=== PATIENT | male | born 1965 | race Caucasian/White ===

== ENCOUNTER 2016-08-14 13:35 | Emergency (ER) | payer SELFPAY ==
[~2016-08-14] VITALS: Ht 172.7 cm; Wt 86.6 kg
[2016-08-14 13:47] VITALS: TEMP 36.8; Ht 172.7 cm; Wt 86.6 kg
[2016-08-14] MEDS ORDERED: ASPI-428 PO (14:05)
[2016-08-14] MEDS ORDERED: ASPI-390 PO (14:05)
[2016-08-14 14:30] LABS: BASO % 0.2 %; BASO ABS # 0.03 K/uL (0-0.2); COMPLETE YES; EOS % 1.3 %; HEMATOCRIT 45.2 % (42-52); IG% 0.3 %; LYMPH % 14.7 %; LYMPH ABS # 1.79 K/uL (1.2-3.4); MEAN CELL VOLUME 78.6 fL (80-100); MEAN CORPUSCULAR HEMOGLOBIN 27.8 pg (25-34); MEAN CORPUSCULAR HGB CONC 35.4 g/dl (32-36); MEAN PLATELET VOLUME 8.9 fL (7.4-10.4); MONO % 5.7 %; NEUT % 77.8 %; PLATELET COUNT 260 K/uL (130-400); RED BLOOD COUNT 5.75 M/uL (4.7-6.1); WHITE BLOOD COUNT 12.15 K/uL (4.8-10.8)
[2016-08-14] MEDS ORDERED: OPTIRAY 320 IV PRN (14:30)
[2016-08-14 14:49] LABS: BLOOD UREA NITROGEN 18 mg/dl (7-18); BUN/CREATININE RATIO 14.8 (10-20); C-REACTIVE PROTEIN < 0.29 mg/dl (0-0.29); CALCIUM 9.6 mg/dl (8.5-10.1); CARBON DIOXIDE 26 mmol/L (21-32); CHLORIDE 102 mmol/L (98-107); GLUCOSE 92 mg/dl (70-99); POTASSIUM 3.6 mmol/L (3.5-5.1); SODIUM 138 mmol/L (136-145)
--- NOTE | 2016-08-14 15:13 | DIAGNOSTIC IMAGING REPORT ---
CT SCAN OF THE ABDOMEN AND PELVIS WITH IV CONTRAST CLINICAL HISTORY: Rectal pain. COMPARISON STUDY: No priors. TECHNIQUE: Following the IV administration of 93 cc of Optiray 320, CT scan of the abdomen and pelvis is performed from the lung bases to the proximal femora. Images are reviewed in the axial, sagittal, and coronal planes. IV contrast was administered without complication. Automated dose control exposure was utilized. CT DOSE: 405.06 mGy.cm FINDINGS: Lung bases: The heart is normal in size and without pericardial effusion. The lung bases are clear noting minimal dependent atelectasis. There is a small hiatal hernia. Liver: The contrast-enhanced liver is normal in size, contour, and attenuation. There is no intrahepatic biliary ductal dilatation. The hepatic veins and portal veins are patent. Scattered hepatic cysts measure up to 1.8 cm. Additional subcentimeter hepatic hypodensities also likely represent cysts but are too small for definitive characterization. Gallbladder: Unremarkable. Spleen: Normal in size and attenuation. Pancreas: Unremarkable. Adrenal glands: Unremarkable. Kidneys: The contrast enhanced kidneys are normal in size and without hydronephrosis. The kidneys enhance symmetrically. Abdominal vasculature: The abdominal aorta is normal in course and caliber. Bowel: The small bowel and colon are normal in course and caliber. The appendix is well-visualized and normal. No rectal wall thickening is identified. The perirectal soft tissues are within normal limits. Peritoneum: There is no intraperitoneal free air or abdominal ascites. There is a small fat-containing umbilical hernia. Lymphadenopathy: None. Pelvic viscera: The bladder, prostate, and seminal vesicles are normal as visualized. There are small bilateral fat-containing inguinal hernias. The perianal soft tissues are normal as visualized. Skeletal structures: No lytic or blastic lesions are seen. There are bilateral pars defects at L5. There is minimal anterolisthesis at L5-S1. IMPRESSION: 1. There are no acute infectious or inflammatory findings in the abdomen or pelvis. 2. The perianal and perirectal soft tissues are normal as visualized as clinically queried. If further assessment of the rectum is desired then endoscopy would be appropriate. Electronically signed by: Jordi Bello M.D. 08/14/2016 3:12 PM Dictated Date/Time: 08/14/2016 3:07 PM
[2016-08-14] MEDS ORDERED: LIDO/EPINEPHRINE/SOD BICARB 20 ML VIAL INFIL ONE (15:29)
[2016-08-14] MEDS ORDERED: XYLOCAINE 1%/SOD BICARB 20 ML VIAL INFIL ONE (15:30)
[2016-08-14 15:53] VITALS: BP 133/83; PULSE 91; O2SAT 97
--- NOTE | 2016-08-14 16:55 | EMERGENCY ROOM VISIT NOTE ---
History First contact with patient: 13:54 Chief Complaint: RECTAL PAIN Stated Complaint: RECTAL PAIN-SENT FROM [facility] Triage Summary: having rectal pain x's a couple days. went to [facility] was sent to r/o hemorrhoids History of Present Illness The patient is a 51 year old male who presents to the Emergency Room with complaints of rectal pain with a lump and liquid stool drainage. The patient reports that he had a lump on the left side of his anus 12 weeks ago. It lasted approximately 5 weeks then went away on its own. The patient reports that he redeveloped a painful lump yesterday that he describes as a throbbing pain. He is also had brown liquid drainage from the rectum as well. He has also noticed bright red blood with wiping. [facility] this afternoon, and referred to the emergency department for further evaluation. The patient denies any abdominal pain, nausea or vomiting. He has had fevers and chills. The patient has never had a colonoscopy in the past. He currently does not have any insurance or family physician. The patient does report frequent constipation. He has noticed a recent increase in frequency of bowel movements. Review of Systems HEENT: Denies dizziness, visual problems, hearing loss, tinnitus. Denies difficulty swallowing or oral lesions. PULMONARY: Denies cough, shortness of breath, sputum production or hemoptysis. CARDIOVASCULAR: Denies chest pain, palpitations, dyspnea on exertion, orthopnea or peripheral edema. GASTROINTESTINAL: See history of present illness. GENITOURINARY: Denies dysuria, frequency, urgency or nocturia. NEUROLOGIC: Denies history of epilepsy, CVA, TIA or chronic headaches. MUSCULOSKELETAL: Denies history of joint tenderness/swelling. SKIN: Denies rashes or lesions. PSYCHIATRIC: Denies history of depression or mental illness. ENDOCRINE: Denies history of diabetes or thyroid disorders. Past Medical/Surgical History Medical Problems: (1) No significant past medical history Surgical Problems: (1) No history of previous surgery Family History FH: cancer FH: diabetes mellitus FH: heart disease FH: hypertension FH: kidney disease FH: lung disease Social History Smoking Status: Never Smoker Alcohol Use: occasionally Marital Status: single Housing Status: lives alone Occupation Status: employed Current/Historical Medications Scheduled Aspirin (Ecotrin Low Strength), 81 MG PO DAILY Scheduled PRN Owalwya-Yzoqntjmgouzw-Clljbxfl (Excedrin Migraine), 1 TAB PO PRN PRN for Migraine Allergies Coded Allergies: Penicillins (Unverified Allergy, Intermediate, vomiting, 06/13/10) Uncoded Allergies: BEES (Allergy, Severe, hives, swelling, 06/13/10) Physical Exam Vital Signs Date Time Temp Pulse Resp B/P Pulse Ox O2 Delivery O2 Flow Rate FiO2 08/14/16 15:53 91 18 133/83 97 08/14/16 15:29 90 18 145/95 97 08/14/16 13:47 36.8 95 18 145/97 96 Room Air Physical Exam CONSTITUTIONAL: Healthy and well nourished. Alert and oriented X 3 with positive affect. She does not appear in any acute distress. HEENT: Normocephalic, atraumatic. Pupils equal, round and reactive. No scleral icterus or conjunctival injection/pallor. NECK: Full active range of motion without discomfort. RESPIRATORY: Clear to auscultation bilaterally with no wheezing, crackles, rhonchi or stridor. CARDIOVASCULAR: Regular rate and rhythm with no murmurs, rubs or gallops. GASTROINTESTINAL: Bowel sounds present in all quadrants. Abdomen is soft and nontender to palpation. Because the patient had 2 digital rectal exam is performed at the [facility] urgent care center, digital rectal exam was deferred. Examination does show a marble-sized external hemorrhoid at 3:00. It is firm to palpation. There is no obvious perirectal erythema or induration. MUSCULOSKELETAL: Full range of motion of all joints without discomfort. INTEGUMENTARY: No rash or other significant dermatologic conditions noted. NEUROLOGIC: No focal neurologic deficits noted. Medical Decision & Procedures ER Provider Diagnostic Interpretation: CT of the abdomen and pelvis with IV contrast does not show any acute perirectal or other intrapelvic findings. Radiologist report is as follows: CT SCAN OF THE ABDOMEN AND PELVIS WITH IV CONTRAST CLINICAL HISTORY: Rectal pain. COMPARISON STUDY: No priors. TECHNIQUE: Following the IV administration of 93 cc of Optiray 320, CT scan of the abdomen and pelvis is performed from the lung bases to the proximal femora. Images are reviewed in the axial, sagittal, and coronal planes. IV contrast was administered without complication. Automated dose control exposure was utilized. CT DOSE: 405.06 mGy.cm FINDINGS: Lung bases: The heart is normal in size and without pericardial effusion. The lung bases are clear noting minimal dependent atelectasis. There is a small hiatal hernia. Liver: The contrast-enhanced liver is normal in size, contour, and attenuation. There is no intrahepatic biliary ductal dilatation. The hepatic veins and portal veins are patent. Scattered hepatic cysts measure up to 1.8 cm. Additional subcentimeter hepatic hypodensities also likely represent cysts but are too small for definitive characterization. Gallbladder: Unremarkable. Spleen: Normal in size and attenuation. Pancreas: Unremarkable. Adrenal glands: Unremarkable. Kidneys: The contrast enhanced kidneys are normal in size and without hydronephrosis. The kidneys enhance symmetrically. Abdominal vasculature: The abdominal aorta is normal in course and caliber. Bowel: The small bowel and colon are normal in course and caliber. The appendix is well-visualized and normal. No rectal wall thickening is identified. The perirectal soft tissues are within normal limits. Peritoneum: There is no intraperitoneal free air or abdominal ascites. There is a small fat-containing umbilical hernia. Lymphadenopathy: None. Pelvic viscera: The bladder, prostate, and seminal vesicles are normal as visualized. There are small bilateral fat-containing inguinal hernias. The perianal soft tissues are normal as visualized. Skeletal structures: No lytic or blastic lesions are seen. There are bilateral pars defects at L5. There is minimal anterolisthesis at L5-S1. IMPRESSION: 1. There are no acute infectious or inflammatory findings in the abdomen or pelvis. 2. The perianal and perirectal soft tissues are normal as visualized as clinically queried. If further assessment of the rectum is desired then endoscopy would be appropriate. Laboratory Results 08/14/16 14:20 Red Blood Count 5.75, Mean Corpuscular Volume 78.6, Mean Corpuscular Hemoglobin 27.8, Mean Corpuscular Hemoglobin Concent 35.4, Mean Platelet Volume 8.9, Neutrophils (%) (Auto) 77.8, Lymphocytes (%) (Auto) 14.7, Monocytes (%) (Auto) 5.7, Eosinophils (%) (Auto) 1.3, Basophils (%) (Auto) 0.2, Neutrophils # (Auto) 9.44, Lymphocytes # (Auto) 1.79, Monocytes # (Auto) 0.69, Eosinophils # (Auto) 0.16, Basophils # (Auto) 0.03 08/14/16 14:20 Test 08/14/16 14:20 White Blood Count 12.15 K/uL (4.8-10.8) Red Blood Count 5.75 M/uL (4.7-6.1) Hemoglobin 16.0 g/dL (14.0-18.0) Hematocrit 45.2 % (42-52) Mean Corpuscular Volume 78.6 fL (80-100) Mean Corpuscular Hemoglobin 27.8 pg (25-34) Mean Corpuscular Hemoglobin Concent 35.4 g/dl (32-36) Platelet Count 260 K/uL (130-400) Mean Platelet Volume 8.9 fL (7.4-10.4) Neutrophils (%) (Auto) 77.8 % Lymphocytes (%) (Auto) 14.7 % Monocytes (%) (Auto) 5.7 % Eosinophils (%) (Auto) 1.3 % Basophils (%) (Auto) 0.2 % Neutrophils # (Auto) 9.44 K/uL (1.4-6.5) Lymphocytes # (Auto) 1.79 K/uL (1.2-3.4) Monocytes # (Auto) 0.69 K/uL (0.11-0.59) Eosinophils # (Auto) 0.16 K/uL (0-0.5) Basophils # (Auto) 0.03 K/uL (0-0.2) RDW Standard Deviation 38.3 fL (36.4-46.3) RDW Coefficient of Variation 13.6 % (11.5-14.5) Immature Granulocyte % (Auto) 0.3 % Immature Granulocyte # (Auto) 0.04 K/uL (0.00-0.02) Erythrocyte Sedimentation Rate 5 mm/hr (0-14) Anion Gap 10.0 mmol/L (3-11) Est Creatinine Clear Calc Drug Dose 76.2 ml/min Estimated GFR () 79.5 Estimated GFR (Non- 68.6 BUN/Creatinine Ratio 14.8 (10-20) Calcium Level 9.6 mg/dl (8.5-10.1) C-Reactive Protein < 0.29 mg/dl (0-0.29) The above labs were reviewed and were grossly normal. Procedure Thrombosed hemorrhoid I&D procedure was performed under local anesthesia after receiving verbal consent from the patient. Using buffered 1% lidocaine without epinephrine, good local anesthesia was administered. Using a #11 scalpel, a 1 cm incision was made. A large thrombosis popped out of the incision. I further explored the hemorrhoid with no additional thromboses noted. Light irrigation was performed prior to gauze application. The patient tolerated the procedure well. ED Course Patient history and physical exam were performed. Nurse's notes were reviewed. Vital signs were reviewed, showing mild elevated blood pressure 145/97. The patient is afebrile and not tachycardic. IV access was established, and labs were drawn. The patient refused any analgesics. Review of labs showed no significant abnormalities. CT of the abdomen and pelvis with IV contrast was otherwise unremarkable. Thrombosed hemorrhoid I&D was successfully performed. The patient was given additional verbal and written hemorrhoid care instructions. Ibuprofen or Tylenol as needed for pain. He was encouraged to not take antidiarrheal medications as this can worsen his hemorrhoid. He was instructed to return for any progressively worsening symptoms. The patient was happy with plan care, and voiced understanding of all discharge instructions. Medical Decision Impression Primary Impression: Thrombosed external hemorrhoid Departure Information Referrals No Doctor, Assigned (PCP) Patient Instructions [facility]
== END 2016-08-14 15:55 | disposition home or self-care (01) ==
LOC: C.EDB 13:38 → C.EDD 15:55
DX: K64.5 Perianal venous thrombosis (principal); Z79.82 Long term (current) use of aspirin; Z88.0 Allergy status to penicillin; Z91.030 Bee allergy status; Z80.9 Family history of malignant neoplasm, unspecified; Z83.3 Family history of diabetes mellitus; Z82.49 Family history of ischemic heart disease and other diseases of the circulatory system; Z84.1 Family history of disorders of kidney and ureter